=== PATIENT | female | born 1995 | race Caucasian/White ===

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

== ENCOUNTER → 2017-01-19 | Outpatient (REF) | payer BC | LOC: M LAB REF 13:03 | PROVIDERS: ATTEND Advanced Practice Midwife | DX: Z34.81 Encounter for supervision of other normal pregnancy, first trimester (principal) ==

== ENCOUNTER → 2017-03-01 | Outpatient (CLI) | payer BC | LOC: M RAD 08:24 | DX: Z36.2 Encounter for other antenatal screening follow-up (principal) | CPT/HCPCS: 76811 ==

== ENCOUNTER → 2017-03-26 | Outpatient (CLI) | payer BC | LOC: M RAD 14:19 | DX: Z34.82 Encounter for supervision of other normal pregnancy, second trimester (principal) ==

== ENCOUNTER → 2017-04-11 | Outpatient (CLI) | payer BC ==
[2017-04-11 13:24] LABS: HEMATOCRIT 37.4 % (36.0-47.0); HEMOGLOBIN 12.4 g/dl (12.0-16.0); MEAN CORPUSCULAR HEMOGLOBIN 30.6 pg (27.0-33.0); MEAN CORPUSCULAR HGB CONC 33.2 g/dl (32.0-36.5); MEAN CORPUSCULAR VOLUME 92.3 fl (80.0-96.0); PLATELET COUNT, AUTOMATED 216 10^3/uL (150-450); RED BLOOD COUNT 4.05 10^6/uL (4.00-5.40); RED CELL DISTRIBUTION WIDTH 13.4 % (11.5-14.5); WHITE BLOOD COUNT 9.1 10^3/uL (4.0-10.0)
[2017-04-11 13:27] LABS: GLUCOSE CHALLENGE TEST 1 HOUR 95 MG/DL (LESS THAN 140)
== END ==
LOC: M SMT 09:17
DX: Z34.82 Encounter for supervision of other normal pregnancy, second trimester (principal)

== ENCOUNTER 2017-04-30 07:51 | Outpatient (CLI) | payer BC | END 2017-04-30 11:30 | disposition home or self-care (01) | LOC: M LDO 07:51 | DX: O26.892 Other specified pregnancy related conditions, second trimester (principal); N89.8 Other specified noninflammatory disorders of vagina; Z3A.26 26 weeks gestation of pregnancy | CPT/HCPCS: 76815 ==

== ENCOUNTER → 2017-05-10 | Outpatient (REF) | payer BC ==
[2017-05-10 15:51] LABS: CHLAMYDIA DNA AMPLIFICATION NEGATIVE (NEGATIVE); GC DNA AMPLIFICATION NEGATIVE (NEGATIVE)
== END ==
LOC: M LAB REF 13:26
DX: Z34.82 Encounter for supervision of other normal pregnancy, second trimester (principal)
CPT/HCPCS: 87591

== ENCOUNTER → 2017-07-05 | Outpatient (REF) | payer BC | LOC: M LAB REF 13:23 | DX: Z34.83 Encounter for supervision of other normal pregnancy, third trimester (principal) | CPT/HCPCS: 87081 ==

== ENCOUNTER 2017-07-19 19:55 | Inpatient (IN) | payer BC ==
[2017-07-19] MEDS: LR 1,000 ML IV (22:46)
[2017-07-19 22:47] LABS: HEMATOCRIT 36.1 % (36.0-47.0); HEMOGLOBIN 11.8 g/dl (12.0-15.5); MEAN CORPUSCULAR HEMOGLOBIN 28.3 pg (27.0-33.0); MEAN CORPUSCULAR HGB CONC 32.7 g/dl (32.0-36.5); MEAN CORPUSCULAR VOLUME 86.6 fl (80.0-96.0); PLATELET COUNT, AUTOMATED 204 10^3/uL (150-450); RED BLOOD COUNT 4.17 10^6/uL (4.00-5.40); RED CELL DISTRIBUTION WIDTH 13.1 % (11.5-14.5); WHITE BLOOD COUNT 12.2 10^3/uL (4.0-10.0)
[2017-07-19] MEDS: OXYTOCIN DRIP 30 UNITS in APPROPRIATE DILUENT 1 EA IV (22:59)
[2017-07-20] MEDS: LR 1,000 ML IV ×2 (01:01→06:56)
[2017-07-20] MEDS ORDERED: FENTANYL 2MCG/ML ROPIVACAINE 0.2% IN 0.9% NACL 200ML IVBAG As Ordered (01:51)
[2017-07-20] MEDS ORDERED: LACTATED RINGER'S 1000 ML IV (02:35)
[2017-07-20] MEDS ORDERED: EPIDURAL/PCA KEYS XX (02:35)
[2017-07-20] MEDS ORDERED: EPIDURAL COMMENT XX (02:35)
[2017-07-20] MEDS ORDERED: diphenhydrAMINE INJ 50MG/ML VIAL (J1200) IV (02:35)
[2017-07-20] MEDS ORDERED: FENTANYL/ROPIVACAINE/NACL BAG 200 ML EPIDURAL (02:35)
[2017-07-20] MEDS ORDERED: ePHEDrine SULFATE 25 MG/5 ML(5MG/ML) SYRINGE IV (02:35)
[2017-07-20] MEDS ORDERED: REFRIGERATOR IV KEYS XX (02:35)
[2017-07-20] MEDS ORDERED: NALOXONE INJ 0.4 MG/1 ML VIAL (J2310) IV (02:35)
[2017-07-20] MEDS ORDERED: ONDANSETRON 4MG/2ML VIAL (J2405) IV (02:35)
[2017-07-20] MEDS: ONDANSETRON 4MG/2ML VIAL (J2405) IV (06:37)
[2017-07-20] MEDS: PRENATAL VITAMINS CHEWABLE TABLET PO (09:00)
[2017-07-20] MEDS ORDERED: RHOGAM 300 MCG (1500 IU) INJ (J2790) IM (09:15)
[2017-07-20] MEDS ORDERED: DOCUSATE SODIUM 100 MG CAP PO (09:15)
[2017-07-20] MEDS ORDERED: MEASLES,MUMPS,RUBELLA VACCINE INJ (MMR-II) (90707) SC (09:15)
[2017-07-20] MEDS ORDERED: MOM 30ML SUSPENSION UDC PO (09:15)
[2017-07-20] MEDS ORDERED: DIBUCAINE 1% OINTMENT 30GM TOP (09:15)
[2017-07-20] MEDS ORDERED: METHYLERGONOVINE MALEATE 0.2 MG TAB PO (09:15)
[2017-07-20] MEDS ORDERED: ACETAMINOPHEN 500 MG TAB PO (09:15)
[2017-07-20] MEDS: IBUPROFEN 800 MG TAB PO ×2 (10:22→20:35)
[2017-07-20] MEDS: OXYTOCIN DRIP 30 UNITS in APPROPRIATE DILUENT 1 EA IV (11:11)
[2017-07-21] MEDS: PRENATAL VITAMINS CHEWABLE TABLET PO (07:28)
[2017-07-21] MEDS: IBUPROFEN 800 MG TAB PO (14:32)
[2017-07-22] MEDS: PRENATAL VITAMINS CHEWABLE TABLET PO (09:00)
== END 2017-07-22 12:00 | disposition home or self-care (01) | DRG 560 ==
LOC: M LDO 19:55 → M LDI 21:47 → M OBS 07-20 11:08
PROVIDERS: Obstetrics & Gynecology
PROC: 10E0XZZ Delivery of Products of Conception, External Approach (ICD-10-PCS; principal; 2017-07-20)
DX: O80 Encounter for full-term uncomplicated delivery (principal); Z37.0 Single live birth; Z3A.38 38 weeks gestation of pregnancy